=== PATIENT | female | born 1930 | race Caucasian/White ===

== ENCOUNTER 2016-12-03 11:16 | Day surgery (SDC) | payer MEDICARE, BC ==
[~2016-12-03 11:16] MED LIST: RINGER'S SOLUTION,LACTATED 1,000 ML IV PRN; ceFAZolin SODIUM 1 GM VIAL IV PRN
--- OUTSIDE RECORDS SUMMARY | 2016-12-03 11:20 | XMS REPORT | Encounter Summary ---
:1930 Author Organization [employer] [place] [address] Care Team Providers Name Role Phone Unavailable Primary Care Provider Unavailable Reason for Visit Reason Comments Elbow Injury History and PHysical for surgery clearance Encounter Details Date Type Department Care Team Description 11/30/2016 Office Visit [facility] Aleks Delgadillo V, Frequent falls (Primary Dx); Reji FRYE Contusion, multiple sites; [address] [place] [address] Right elbow pain; [place] [address] [place] [address] Essential hypertension; [phone] Hypothyroidism, unspecified type; [phone] Unsteady gait (Fax) Social History Tobacco Use Types Packs/Day Years Used Date Current Every Day Smoker 1 Smokeless Tobacco: Never Used Alcohol Use Drinks/Week oz/Week Comments No Sex Assigned at Date Recorded Not on file as of this encounter Last Filed Vital Signs Vital Sign Reading Time Taken Blood Pressure 110/60 11/30/2016 9:56 AM CDT Pulse 52 11/30/2016 9:56 AM CDT Temperature 35.5 C (95.9 F) 11/30/2016 9:56 AM CDT Respiratory Rate 16 11/30/2016 9:56 AM CDT Oxygen Saturation 96% 11/30/2016 9:56 AM CDT Inhaled Oxygen Concentration - - Weight 53.1 kg (117 lb) 11/30/2016 9:56 AM CDT Height - - Body Mass Index 22.11 11/30/2016 9:56 AM CDT in this encounter Progress Notes Aleks Delgadillo V, - 11/30/2016 10:30 AM CDTFormatting of this note may be different from the original. Subjective: Patient ID: Luz Moreno is a 86 y.o. female. Here for History and Physical for clearance for Right Elbow surgery with Dr. Chisholm in [facility]. Surgery is scheduled for 12/03 tentatively. History provided by: Caregiver History limited by: Age and acuity of condition director workforce management used: No Recent fall and contusions to upper extremities and face. Patient's problem list, medications, allergies, past medical, surgical, social and family histories were reviewed and updated as appropriate. Review of Systems Constitutional: Negative. HENT: Negative. Eyes: Negative. Respiratory: Negative. Cardiovascular: Negative. Gastrointestinal: Negative. Endocrine: Negative. Genitourinary: Negative. Musculoskeletal: Negative. Elbow pain /fracture Skin: Negative. Allergic/Immunologic: Negative. Neurological: Negative. Hematological: Negative. Psychiatric/Behavioral: Negative. Objective: BP 110/60 (BP Location: E, BP Position: sitting, BP Cuff Size: Reg) | Pulse 52 | Temp (!) 35.5 C (95.9 F) | Resp 16 | Wt 53.1 kg (117 lb) | SpO2 96 % | BMI 22.11 kg/m Body mass index is22.11 kg/m. Physical Exam Constitutional: She appears well-developed and well-nourished. HENT: Head: Normocephalic. Right Ear: External ear normal. Left Ear: External ear normal. Nose: Nose normal. Mouth/Throat: Oropharynx is clear and moist. Bruising to the right side face and head. Eyes: Conjunctivae and EOM are normal. Pupils are equal, round, and reactive to light. Neck: Normal range of motion. Neck supple. Cardiovascular: Normal rate, regular rhythm and normal heart sounds. Pulmonary/Chest: Effort normal and breath sounds normal. Abdominal: Soft. Bowel sounds are normal. Musculoskeletal: Generalized weakness. Unsteady gait. Pain in right elbow with decreased range of motion. Neurological: She is alert. Skin: Skin is warm and dry. Multiple bruises on upper and lower extremities. Psychiatric: She has a normal mood and affect. Her behavior is normal. Demented. Nursing note and vitals reviewed. Assessment/Orders: Diagnoses and all orders for this visit: Frequent falls Contusion, multiple sites Right elbow pain Plan: Medically cleared for elbow surgery. Recommend Correction and rehab post- surgery due to frequent falls and unsteady gait. in this encounter Plan of Treatment Not on fileas of this encounter Goals Patient Goal Type Goal Recent Progress Patient-Stated? Author Blood Pressure Blood Pressure < 110/60(11/30/2016 Aleks Eckert 140/90 9:56 AM CDT) V, DO as of this encounter Visit Diagnoses Diagnosis Frequent falls - Primary Personal history of fall Contusion, multiple sites Contusion of multiple sites, not elsewhere classified Right elbow pain Pain in joint, upper arm Essential hypertension Unspecified essential hypertension Hypothyroidism, unspecified type Unsteady gait Abnormality of gait in this encounter"
--- OUTSIDE RECORDS SUMMARY | 2016-12-03 11:20 | XMS REPORT | Clinical Summary ---
:1930 Author Organization [email or web address] [place] [address] Care Team Providers Name Role Phone Unavailable Primary Care Provider Unavailable Source Comments This disclosure is being made pursuant to the [employer] program and maynot contain all information available regarding this patient.[email or web address] Allergies No Known Allergies Current Medications Be aware that medications may not be up to date as of this document. Alwaysverify current medications with the patient. Prescription Sig. Disp. Refills Start Date End Date Status atenolol (TENORMIN) Take 1 tablet 30 tablet 11 08/13/2016 Active 50 MG tablet by mouth daily. benazepril TAKE ONE 30 tablet 4 09/16/2016 Active (LOTENSIN) 40 MG TABLET BY tablet MOUTH ONCE DAILY folic acid (FOLVITE) TAKE ONE 30 tablet 0 10/22/2016 Active 1 MG tablet TABLET BY MOUTH ONCE DAILY levothyroxine Take 1 tablet 10/22/2016 Active (SYNTHROID, oral daily. LEVOTHROID) 88 MCG tablet HYDROcodone-acetamin Take 1 tablet 45 tablet 0 11/11/2016 Active ophen (NORCO) 5-325 by mouth MG per tablet every 6 (six) hours as needed for Pain. Take oral as needed. HYDROcodone-acetamin Take oral as 11/03/2016 11/11/2016 Discontinued ophen (NORCO) 5-325 needed. MG per tablet sulfamethoxazole-tri Take 1 tablet 20 tablet 0 11/04/2016 11/14/2016 methoprim (BACTRIM by mouth 2 DS,SEPTRA DS) (two) times 800-160 MG per daily. tabletIndications:Ac lower brule cystitis without hematuria Active Problems Problem Noted Date Closed displaced fracture of olecranon process of right ulna with 11/04/2016 intra-articular extension Encounters Date Type Specialty Care Team Description 11/30/2016 Office Visit Family Medicine Manarang, Don V, DO Frequent falls (Primary Dx); Contusion, multiple sites; Right elbow pain; Essential hypertension; Hypothyroidism, unspecified type; Unsteady gait 11/26/2016 Telephone Family Medicine Monserrat Pugh, Ortho appt RN 11/25/2016 Telephone Family Medicine Monserrat Pugh, Follow-up (appt with early childhood specialist) 11/24/2016 Orders Only Kaci Subramanian Head injury, closed, without LOC, subsequent encounter 11/24/2016 Telephone Orthopedic Surgery Kymberly Gifford Procedure J, RN 11/24/2016 Telephone Family Monserrat Oakes, neuro call back RN 11/24/2016 Telephone Family Monserrat Oakes, Neuro eval and surgery RN 11/17/2016 Orders Only Family Medicine Aleks Delgadillo V, Frequent falls 11/15/2016 Telephone Orthopedic Surgery Kymberly Gifford Follow-up J, RN 11/11/2016 Telephone Family Monserrat Oakes, Results RN 11/11/2016 Telephone Orthopedic Surgery Kymberly Gifford Follow-up J, RN 11/11/2016 Refill Family Medicine Monserrat Pugh, RN 11/04/2016 Office Visit Family Medicine Aleks Delgadillo V, Frequent falls (Primary Dx); Head injury, closed, without LOC, subsequent encounter; Right elbow pain; Acute cystitis without hematuria 11/04/2016 Office Visit Orthopedic Surgery Lauren, Closed displaced MD João fracture of olecranon process of right ulna with intra-articular extension, initial encounter (Primary Dx) 10/22/2016 Refill Family Medicine Aleks Delgadillo V, DO 09/15/2016 Refill Family Medicine Aleks Delgadillo V, DO from Last 3 Months Family History Medical History Relation Name Comments Cancer Other Relation Name Status Comments Other Social History Tobacco Use Types Packs/Day Years Used Date Current Every Day Smoker 1 Smokeless Tobacco: Never Used Alcohol Use Drinks/Week oz/Week Comments No Sex Assigned at Date Recorded Not on file Last Filed Vital Signs Vital Sign Reading Time Taken Blood Pressure 110/60 11/30/2016 9:56 AM CDT Pulse 52 11/30/2016 9:56 AM CDT Temperature 35.5 C (95.9 F) 11/30/2016 9:56 AM CDT Respiratory Rate 16 11/30/2016 9:56 AM CDT Oxygen Saturation 96% 11/30/2016 9:56 AM CDT Inhaled Oxygen Concentration - - Weight 53.1 kg (117 lb) 11/30/2016 9:56 AM CDT Height 154.9 cm (5' 1") 11/04/2016 9:47 AM CDT Body Mass Index 22.11 11/30/2016 9:56 AM CDT Plan of Treatment Health Maintenance Due Date Last Done Comments Tetanus/Pertussis (1 - Tdap) 09/20/1949 Well Adult Visit 1982 Zoster Vaccine 60+ 1992 Bone Density 1997 Pneumococcal Low/Medium Risk 65+ (1 of 2 - PCV13) 1997 INFLUENZA IMMUNIZATION (#1) 2016 Goals Patient Goal Type Goal Recent Progress Patient-Stated? Author Blood Pressure Blood Pressure < 110/60(11/30/2016 Aleks Eckert 140/90 9:56 AM CDT) V, DO Results MRI BRAIN W WO CONTRAST (11/08/2016 3:36 PM) Specimen Performing Laboratory EXTERNAL NON UPH RAD - NO INTERFACE Creatinine, Blood (11/08/2016) Specimen Performing Laboratory EXTERNAL NON UPH - NO INTERFACE POCT UA (11/04/2016) Component Value Ref Range Color, UA orange(A) colorless, yellow Clarity or appearance, UA cloudy(A) clear Glucose, UA negative negative mg/dL Bilirubin, UA small (1+)(A) negative, trace Ketones, UA negative negative, trace Specific [place],UA POC 1.025 1.003 - 1.029 Blood, UA moderate (2+)(A) negative pH, UA POC 7.5 5.0 - 8.5 Protein, UA POC 300 (3+)(A) negative Urobilinogen, UA POC 1.0 0.20 - 1.00 mg/dL Nitrite POC Negative Negative, Indeterminate Leukocytes, UA large (3+)(A) negative, trace Color, UA Clarity, UA Glucose, UA NEG Bilirubin, UA NEG Ketones, UA Specific [place] POC Blood, UR pH Protein POC NEG Urobilinogen, UA Leukocytes, UA Nitrite POC NEG Appearance, Fluid Clear, Slightly Cloudy Specimen Performing Laboratory [address], [address] [place] [address] from Last 3 Months Insurance Payer Benefit Plan / Group Subscriber ID Type Phone Address [employer] [place] [id number] [id number] MEDICARE SUPPLEMENT [address] [place] [address] MEDICARE MEDICARE A AND B [id number] [address] [place] [address] [phone] [place] [id number]
--- OUTSIDE RECORDS SUMMARY | 2016-12-03 11:21 | XMS REPORT | Encounter Summary ---
:1930 Author Organization [employer] [place] [address] Care Team Providers Name Role Phone Unavailable Primary Care Provider Unavailable Reason for Referral Referral (Routine) Status Reason Specialty Diagnoses / Referred By Referred To Procedures Contact Contact Authorized Specialty Orthopedic Diagnoses Elbow fracture, right, with delayed healing, subsequent encounter Aleks Delgadillo Services Surgery V, DO Required [address] [place] [address] Reason for Visit Reason Comments Ortho appt Encounter Details Date Type Department Care Team Description 11/26/2016 Telephone [facility] Monserrat Fields, weight analyst appt [address] [place], [place] [id number] [phone] Social History Tobacco Use Types Packs/Day Years Used Date Current Every Day Smoker 1 Alcohol Use Drinks/Week oz/Week Comments No Sex Assigned at Date Recorded Not on file as of this encounter Plan of Treatment Name Priority Associated Diagnoses Order Schedule Amb Ref to Orthopedic Routine Elbow fracture, right, with Ordered: 2016 Surgery delayed healing, subsequent encounter as of this encounter Visit Diagnoses Diagnosis Elbow fracture, right, with delayed healing, subsequent encounter - Primary in this encounter
--- OUTSIDE RECORDS SUMMARY | 2016-12-03 11:21 | XMS REPORT | Encounter Summary ---
:1932 Author Organization [employer] [place] [address] Care Team Providers Name Role Phone Unavailable Primary Care Provider Unavailable Reason for Visit Reason Comments neuro call back Encounter Details Date Type Department Care Team Description 11/24/2016 Telephone [facility] Monserrat Pugh, MACI neuro call back [address] [address] [phone] Social History Tobacco Use Types Packs/Day Years Used Date Current Every Day Smoker 1 Alcohol Use Drinks/Week oz/Week Comments No Sex Assigned at Date Recorded Not on file as of this encounter Plan of Treatment Not on fileas of this encounter Visit Diagnoses Not on filein this encounter
--- OUTSIDE RECORDS SUMMARY | 2016-12-03 11:21 | XMS REPORT | Encounter Summary ---
:1932 Author Organization [employer] [place] [address] Care Team Providers Name Role Phone Unavailable Primary Care Provider Unavailable Reason for Referral MRI/CAT Scan (Routine) Status Reason Specialty Diagnoses / Referred By Referred To Procedures Contact Contact Authorized Other Diagnoses Head injury, closed, without LOC, subsequent encounter Aleks Delgadillo V, Procedures MRI BRAIN W WO CONTRAST DO [address] [place] [address] Encounter Details Date Type Department Care Team Description 11/24/2016 Orders Only [facility] Kaci Subramanian Head injury, closed, Centralized Scanning [address] without LOC, [place], [place] subsequent encounter [id number] Social History Tobacco Use Types Packs/Day Years Used Date Current Every Day Smoker 1 Alcohol Use Drinks/Week oz/Week Comments No Sex Assigned at Date Recorded Not on file as of this encounter Plan of Treatment Not on fileas of this encounter Goals Patient Goal Type Goal Recent Progress Patient-Stated? Author Blood Pressure Blood Pressure < 110/60(11/30/2016 No Aleks Delgadillo 140/90 9:56 AM CDT) V, DO as of this encounter Results MRI BRAIN W WO CONTRAST (11/08/2016 3:36 PM) Specimen Performing Laboratory EXTERNAL NON UPH RAD - NO INTERFACE in this encounter Visit Diagnoses Diagnosis Head injury, closed, without LOC, subsequent encounter in this encounter
--- OUTSIDE RECORDS SUMMARY | 2016-12-03 11:21 | XMS REPORT | Encounter Summary ---
:1932 Author Organization [employer] [place] [address] Care Team Providers Name Role Phone Unavailable Primary Care Provider Unavailable Reason for Visit Reason Comments Procedure Encounter Details Date Type Department Care Team Description 11/24/2016 Telephone [facility] Kymberly Ojeda RN Procedure Orthopedics [address] [place] [address], [address] [address] [place], [place] [id number] Social History Tobacco Use Types Packs/Day Years Used Date Current Every Day Smoker 1 Alcohol Use Drinks/Week oz/Week Comments No Sex Assigned at Date Recorded Not on file as of this encounter Plan of Treatment Not on fileas of this encounter Visit Diagnoses Not on filein this encounter
--- OUTSIDE RECORDS SUMMARY | 2016-12-03 11:21 | XMS REPORT | Encounter Summary ---
:1932 Author Organization [employer] [place] [address] Care Team Providers Name Role Phone Unavailable Primary Care Provider Unavailable Reason for Visit Reason Comments Follow-up appt with Ortho Encounter Details Date Type Department Care Team Description 11/25/2016 Telephone [facility] Monserrat Pugh, Follow-up ( appt with Reji Wallace) [address] [place] [phone] [place] [phone] Social History Tobacco Use Types Packs/Day Years Used Date Current Every Day Smoker 1 Alcohol Use Drinks/Week oz/Week Comments No Sex Assigned at Date Recorded Not on file as of this encounter Plan of Treatment Not on fileas of this encounter Visit Diagnoses Not on filein this encounter
--- OUTSIDE RECORDS SUMMARY | 2016-12-03 11:21 | XMS REPORT | Encounter Summary ---
:1932 Author Organization [employer] [place] [address] Care Team Providers Name Role Phone Unavailable Primary Care Provider Unavailable Reason for Visit Reason Comments Neuro eval and surgery Encounter Details Date Type Department Care Team Description 11/24/2016 Telephone [facility] Monserrat Pugh, Neuro eval and surgery Reji RN [address] [place] [phone] [place] [address] [phone] Social History Tobacco Use Types Packs/Day Years Used Date Current Every Day Smoker 1 Alcohol Use Drinks/Week oz/Week Comments No Sex Assigned at Date Recorded Not on file as of this encounter Plan of Treatment Not on fileas of this encounter Visit Diagnoses Not on filein this encounter
--- OUTSIDE RECORDS SUMMARY | 2016-12-03 11:22 | XMS REPORT | Encounter Summary ---
:1932 Author Organization [employer] [place] [address] Care Team Providers Name Role Phone Unavailable Primary Care Provider Unavailable Reason for Visit Reason Comments Follow-up Encounter Details Date Type Department Care Team Description 11/15/2016 Telephone [facility] Kymberly Ojeda RN Follow-up Orthopedics [address] [place] [address], [address] [address] [place], [place] [phone] Social History Tobacco Use Types Packs/Day Years Used Date Current Every Day Smoker 1 Alcohol Use Drinks/Week oz/Week Comments No Sex Assigned at Date Recorded Not on file as of this encounter Plan of Treatment Not on fileas of this encounter Visit Diagnoses Not on filein this encounter
--- OUTSIDE RECORDS SUMMARY | 2016-12-03 11:22 | XMS REPORT | Encounter Summary ---
:1932 Author Organization [employer] [place] [address] Care Team Providers Name Role Phone Unavailable Primary Care Provider Unavailable Reason for Referral Referral (Routine) Status Reason Specialty Diagnoses / Referred By Referred To Procedures Contact Contact Authorized Patient Neurology Diagnoses Headaches due to old head injury Aleks Delgadillo [place] Preference V, [facility], [address] [place] [address] [address] [address], [facility] Phone: [place], [place] [phone] [address] Fax: Reason for Visit Reason Comments Results Encounter Details Date Type Department Care Team Description 11/11/2016 Telephone [facility] Monserrat Fields, MACI Results [address] [place], [place] [id number] [place] [address] [phone] Social History Tobacco Use Types Packs/Day Years Used Date Current Every Day Smoker 1 Alcohol Use Drinks/Week oz/Week Comments No Sex Assigned at Date Recorded Not on file as of this encounter Plan of Treatment Name Priority Associated Diagnoses Order Schedule Amb Ref to Neurology Routine Headaches due to old head injury Ordered: 11/11 as of this encounter Visit Diagnoses Diagnosis Headaches due to old head injury - Primary Post-traumatic headache, unspecified in this encounter
--- OUTSIDE RECORDS SUMMARY | 2016-12-03 11:23 | XMS REPORT | Encounter Summary ---
:1932 Author Organization [employer] Address [place] [address] Care Team Providers Name Role Phone Unavailable Primary Care Provider Unavailable Reason for Visit Reason Comments Elbow Pain RIGHT Encounter Details Date Type Department Care Team Description 11/04/2016 Office Visit [facility] Lauren, Bettina displaced [place] [facility] MD João fracture of olecranon [address] [facility], [address] [place] [address] process of right ulna [address] [place] [address] [place], [place] extension, initial [phone] encounter (Primary Dx) [phone] Social History Tobacco Use Types Packs/Day Years Used Date Current Every Day Smoker 1 Alcohol Use Drinks/Week oz/Week Comments No Sex Assigned at Date Recorded Not on file as of this encounter Last Filed Vital Signs Vital Sign Reading Time Taken Blood Pressure 135/70 11/04/2016 9:47 AM CDT Pulse - - Temperature 35.8 C (96.5 F) 11/04/2016 9:47 AM CDT Respiratory Rate - - Oxygen Saturation - - Inhaled Oxygen Concentration - - Weight 53.1 kg (117 lb) 11/04/2016 9:47 AM CDT Height 154.9 cm (5' 1") 11/04/2016 9:47 AM CDT Body Mass Index 22.11 11/04/2016 9:47 AM CDT in this encounter Progress Notes João Aguilar MD - 11/04/2016 9:32 AM CDTFormatting of this note may be different from the original. Subjective: Patient ID: Luz Moreno is a 86 y.o. female. Chief Complaint: HPI Comments: Ms. Moreno presents to the clinic today due to RIGHT elbow pain. She presented to the [facility] ER on 11/03/16 after falling yesterday morning. She presents today with her daughter. Both women stated that x-rays were obtained at the ER, she was placed in a splint, and was given a prescription of Vicodin. Her daughter states that the ER staff told her that her mother had "two fractures in her elbow." She presents today wearing a sling and in a wheelchair. She reports that her elbow is more sore today than it was yesterday. Her daughter reports that Ms. Moreno has had some trouble sleeping due to the pain. She rates her current pain level as 7/10, with 10 being the most severe. She reports that her prescribed Vicodin helps torelieve some pain. Social History Occupational History Not on file. Social History Main Topics Smoking status: Current Every Day Smoker -- 1.00 packs/day Smokeless tobacco: Not on file Alcohol Use: No Drug Use: No Sexual Activity: Not on file Review of Systems Constitutional: Negative. HENT: Negative. Eyes: Negative. Respiratory: Negative. Cardiovascular: Negative. Gastrointestinal: Negative. Endocrine: Negative. Genitourinary: Negative. Musculoskeletal: RIGHT elbow pain Skin: Negative. Allergic/Immunologic: Negative. Neurological: Negative. Hematological: Negative. Psychiatric/Behavioral: Negative. Objective: Ortho Exam DNVI SHOULDEER WRIST BENING XRS; DISPLACED RIGHT OLECRANON INTRA ART FRACTURE Assessment: 1. Closed displaced fracture of olecranon process of right ulna with intra- articular extension, initial encounter Plan: NEEDS SURGERY NEEDS FU MRI FOR CLOSED HEAD INJURY 1ST/DR Brenner in this encounter Plan of Treatment Not on fileas of this encounter Visit Diagnoses Diagnosis Closed displaced fracture of olecranon process of right ulna with intra- articular extension, initial encounter - Primary in this encounter
--- OUTSIDE RECORDS SUMMARY | 2016-12-03 11:23 | XMS REPORT | Encounter Summary ---
:1930 Author Organization [employer] [place] [address] Care Team Providers Name Role Phone Unavailable Primary Care Provider Unavailable Reason for Referral MRI/CAT Scan (Routine) Status Reason Specialty Diagnoses / Referred By Referred To Procedures Contact Contact Authorized Other Diagnoses Head injury, closed, without LOC, subsequent encounter Aleks Delgadillo V, Procedures MRI BRAIN W WO CONTRAST DO [address] [place] [id number] Reason for Visit Reason Comments Follow-up fall Encounter Details Date Type Department Care Team Description 11/04/2016 Office Visit [facility] Aleks Delgadillo V, Frequent falls (Primary Dx); [facility] Head injury, closed, without LOC, subsequent encounter; [address] [place] [address] Right elbow pain; [place] [address] [place] [address] Acute cystitis without hematuria [phone] Social History Tobacco Use Types Packs/Day Years Used Date Current Every Day Smoker 1 Alcohol Use Drinks/Week oz/Week Comments No Sex Assigned at Date Recorded Not on file as of this encounter Last Filed Vital Signs Vital Sign Reading Time Taken Blood Pressure 128/72 11/04/2016 1:22 PM CDT Pulse 58 11/04/2016 1:22 PM CDT Temperature - - Respiratory Rate 16 11/04/2016 1:22 PM CDT Oxygen Saturation 99% 11/04/2016 1:22 PM CDT Inhaled Oxygen Concentration - - Weight - - Height - - Body Mass Index - - in this encounter Instructions Patient Instructions - Aleks Delgadillo V, DO - 11/04/2016 1:35 PM CDT Urinary Tract Infection in Women: Care Instructions Your Care Instructions A urinary tract infection, or UTI, is a general term for an infection anywhere between the kidneys and the urethra (where urine comes out). Most UTIs are bladder infections. They often cause pain or burning when you urinate. UTIs are caused by bacteria and can be cured with antibiotics. Be sure to complete your treatment so that the infection goes away. Follow-up care is a [place] part of your treatment and safety. Be sure to make and go to all appointments, and call your doctor if you are having problems. It's also a good idea to know your test resultsand keep a list of the medicines you take. How can you care for yourself at home? Take your antibiotics as directed. Do not stop taking them just because you feel better. You need to take the full course of antibiotics. Drink extra water and other fluids for the next day or two. This may help wash out the bacteria that are causing the infection. (If you have kidney, heart , or liver disease and have to limit fluids, talk with your doctor before you increase your fluid intake.) Avoid drinks that are carbonated or have caffeine. They can irritate the bladder. Urinate often. Try to empty your bladder each time. To relieve pain, take a hot bath or lay a heating pad set on low over your lower belly or genital area. Never go to sleep with a heating pad in place. To prevent UTIs Drink plenty of water each day. This helps you urinate often, which clears bacteria from your system. (If you have kidney, heart, or liver disease and have to limit fluids, talk with your doctor before you increase your fluid intake.) Urinate when you need to. Urinate right after you have sex. Change sanitary pads often. Avoid douches, bubble baths, feminine hygiene sprays, and other feminine hygiene products that have deodorants. After going to the bathroom, wipe from front to back. When should you call for help? Call your doctor now or seek immediate medical care if: Symptoms such as fever, chills, nausea, or vomiting get worse or appear for the first time. You have new pain in your back just below your rib cage. This is called flank pain. There is new blood or pus in your urine. You have any problems with your antibiotic medicine. Watch closely for changes in your health, and be sure to contact your doctor if: You are not getting better after taking an antibiotic for 2 days. Your symptoms go away but then come back. Where can you learn more? Go to the "Search Health Library" box on [employer] [email or web address] by clicking on the magnifying glass tab. Enter K848 in the search box to learn more about "Urinary Tract Infection in Women: Care Instructions." Not on [employer]? Go to [email or web address] and click the "Sign Up Now" link to request an activation code. Current as of: March 29, 2016 Content Version: 11.3 8608-1612 [employer]. Care instructions adapted under license by your healthcare professional. This care instruction is for use with your licensed healthcare professional. If you havequestions about a medical condition or this instruction, always ask your healthcare professional. [employer] disclaims any warranty or liability for your use of this information. in this encounter Progress Notes Aleks Delgadillo V, - 11/04/2016 1:22 PM CDTFormatting of this note may be different from the original. Subjective: Patient ID: Luz Moreno is a 86 y.o. female. HPI Here for follow up on ER after fall yesterday morning. She hurt her elbow and hit her head. Complains of headache. Daughter states had some questionable CT head result. Patient's problem list, medications, allergies, past medical, surgical, social and family histories were reviewed and updated as appropriate. Review of Systems Constitutional: Negative. HENT: Negative. Eyes: Negative. Respiratory: Negative. Cardiovascular: Negative. Gastrointestinal: Negative. Endocrine: Negative. Genitourinary: Negative. Musculoskeletal: RT elbow swelling after fall. Allergic/Immunologic: Negative. Neurological: Negative. Hematological: Negative. Psychiatric/Behavioral: Negative. Objective: BP 128/72 mmHg | Pulse 58 | Resp 16 | SpO2 99% There is no weight on file to calculate BMI. Physical Exam Constitutional: She is oriented to person, place, and time. She appears well- developed and well-nourished. HENT: Head: Normocephalic. Right Ear: External ear normal. Left Ear: External ear normal. Nose: Nose normal. Mouth/Throat: Oropharynx is clear and moist. Eyes: Conjunctivae and EOM are normal. Pupils are equal, round, and reactive to light. Neck: Normal range of motion. Neck supple. Cardiovascular: Normal rate, regular rhythm and normal heart sounds. Pulmonary/Chest: Effort normal and breath sounds normal. Abdominal: Soft. Musculoskeletal: Unsteady gait patient seen in wheelchair today. Right elbow in cast/splint. Neurological: She is alert and oriented to person, place, and time. Persistent headache. Skin: Skin is warm and dry. Psychiatric: She has a normal mood and affect. Her behavior is normal. Nursing note and vitals reviewed. Assessment/Orders: Diagnoses and all orders for this visit: Frequent falls - POCT UA - Creatinine, Blood; Future Head injury, closed, without LOC, subsequent encounter - MRI BRAIN W WO CONTRAST; Future Right elbow pain Acute cystitis without hematuria - sulfamethoxazole-trimethoprim (BACTRIM DS,SEPTRA DS) 800-160 MG per tablet ; Take 1 tablet by mouth 2 (two) times daily. Plan: Need MRI brain with history of falls, headaches, and possible normal pressure hydrocephalus on CT in this encounter Plan of Treatment Not on fileas of this encounter Results MRI BRAIN W [...] trace Ketones, UA negative negative, trace Specific [place],UA POC 1.025 1.003 - 1.029 Blood, UA moderate (2+)(A) negative pH, UA POC 7.5 5.0 - 8.5 Protein, UA POC 300 (3+)(A) negative Urobilinogen, UA POC 1.0 0.20 - 1.00 mg/dL Nitrite POC Negative Negative, Indeterminate Leukocytes, UA large (3+)(A) negative, trace Color, UA Clarity, UA Glucose, UA NEG Bilirubin, UA NEG Ketones, UA Specific [place] POC Blood, UR pH Protein POC NEG Urobilinogen, UA Leukocytes, UA Nitrite POC NEG Appearance, Fluid Clear, Slightly Cloudy Specimen Performing Laboratory [address], [address] [place] [address] in this encounter Visit Diagnoses Diagnosis Frequent falls - Primary Personal history of fall Head injury, closed, without LOC, subsequent encounter Right elbow pain Pain in joint, upper arm Acute cystitis without hematuria Acute cystitis in this encounter
--- OUTSIDE RECORDS SUMMARY | 2016-12-03 11:23 | XMS REPORT | Encounter Summary ---
:1930 Author Organization [facility] Address [place] [address] Care Team Providers Name Role Phone Unavailable Primary Care Provider Unavailable Reason for Visit Reason Comments Medication Refill Encounter Details Date Type Department Care Team Description 11/11/2016 Refill [facility] Monserrat Fields, RN [address] [place] [phone] [place] [address] [phone] Social History Tobacco Use Types Packs/Day Years Used Date Current Every Day Smoker 1 Alcohol Use Drinks/Week oz/Week Comments No Sex Assigned at Date Recorded Not on file as of this encounter Plan of Treatment Not on fileas of this encounter Visit Diagnoses Not on filein this encounter
--- OUTSIDE RECORDS SUMMARY | 2016-12-03 11:23 | XMS REPORT | Encounter Summary ---
:1930 Author Organization [facility] [place] [address] Care Team Providers Name Role Phone Unavailable Primary Care Provider Unavailable Reason for Visit Reason Comments Follow-up Encounter Details Date Type Department Care Team Description 11/11/2016 Telephone [facility] Kymberly Ojeda RN Follow-up Orthopedics [address] [place] [address], [address] [id number] [place], [place] [id number] Social History Tobacco Use Types Packs/Day Years Used Date Current Every Day Smoker 1 Alcohol Use Drinks/Week oz/Week Comments No Sex Assigned at Date Recorded Not on file as of this encounter Plan of Treatment Not on fileas of this encounter Visit Diagnoses Not on filein this encounter
--- OUTSIDE RECORDS SUMMARY | 2016-12-03 11:23 | XMS REPORT | Encounter Summary ---
:1930 Author Organization [employer] [place] [address] Care Team Providers Name Role Phone Unavailable Primary Care Provider Unavailable Reason for Visit Reason Comments Medication Refill Encounter Details Date Type Department Care Team Description 09/15/2016 Refill [facility] Aleks Delgadillo V, [address] [place] [phone] [place] [id number] Social History Tobacco Use Types Packs/Day Years Used Date Never Assessed Sex Assigned at Date Recorded Not on file as of this encounter Plan of Treatment Not on fileas of this encounter Visit Diagnoses Not on filein this encounter
--- OUTSIDE RECORDS SUMMARY | 2016-12-03 11:24 | XMS REPORT | Encounter Summary ---
:1930 Author Organization [employer] [place] [address] Care Team Providers Name Role Phone Unavailable Primary Care Provider Unavailable Reason for Visit Reason Comments Medication Refill Encounter Details Date Type Department Care Team Description 08/13/2016 Refill [facility] Monserrat Fields, RN [facility] [id number] [place] [id number] Social History Tobacco Use Types Packs/Day Years Used Date Never Assessed Sex Assigned at Date Recorded Not on file as of this encounter Plan of Treatment Not on fileas of this encounter Visit Diagnoses Not on filein this encounter
[2016-12-03] MEDS ORDERED: RINGER'S SOLUTION,LACTATED 1,000 ML IV ONE (13:05)
--- NOTE | 2016-12-03 15:37 | OR ---
Anesthesia Procedure Note - Anesthesia Procedure Note Date of Service: 12/03/16 Narrative: Vital Signs - Last Taken Temp 36.6 C 12/03/16 15:30 Pulse 90 12/03/16 15:30 Resp 16 12/03/16 15:30 BP 140/59 12/03/16 15:30 Pulse Ox 98 12/03/16 15:30 O2 Oxygen Delivery Method Nasal Cannula 12/03/16 15:35 ANESTHESIA PROCEDURE NOTE Date of Procedure: 12/03/2016 Time of procedure: 1310. Performed by: CARYN Titus CRNA, MSN Shelter Supervisor: Aye Chung RN. Preprocedure diagnosis: Pitting relief for post ORIF elbow. Post procedure diagnosis: Same. Procedure: Right Interscalene nerve block. Indications: Post elbow surgery pain relief. Findings: See below. Details of the procedure: The patient was brought to OR #2 and placed in semi- Fowlers position. The patient was prepped with chlorhexidine and using ultrasound guidance the right interscalene segment of the brachial plexus was identified and lidocaine 1% was infiltrated to the skin of the intended injection site. Under ultrasound guidance the interscalene nerve bundles were approached until a shoulder/arm response was identified on nerve stimulator. Once the stimulator response was effective at less than 0.5 mV and greater than 0.3 mV the femoral nerve was surrounded with 30 mL bupivacaine 0.5% with 1-200, 000 epinephrine. Please see radiology/ultrasound report for details and images of the procedure. EBL: 0 Fluids: N/A. Specimen: N/A. Post procedure condition: The patient tolerated the procedure well. No complications were noted. Thank you for this consultation. Adal Hassan CRNA, ARNP, MSN
[2016-12-03 17:14] VITALS: BP 104/56
== END 2016-12-03 11:17 | disposition home or self-care (01) ==
LOC: AMB 11:16
PROVIDERS: ATTEND Orthopaedic Surgery
PROC: 3E0T3BZ Introduction of Anesthetic Agent into Peripheral Nerves and Plexi, Percutaneous Approach (ICD-10-PCS; 2016-12-03)
PROC: 0PSK04Z Reposition Right Ulna with Internal Fixation Device, Open Approach (ICD-10-PCS; principal; 2016-12-03 14:15)
DX: S52.021A Displaced fracture of olecranon process without intraarticular extension of right ulna, initial encounter for closed fracture (principal); I10 Essential (primary) hypertension; E03.9 Hypothyroidism, unspecified; R26.81 Unsteadiness on feet; Z68.22 Body mass index [BMI] 22.0-22.9, adult; W19.XXXA Unspecified fall, initial encounter; Z91.81 History of falling

== ENCOUNTER 2017-01-21 10:34 | Day surgery (SDC) | payer MEDICARE, BC ==
[~2017-01-21 10:34] MED LIST changes: +HYDROmorphone HCL 2 MG/ML VIAL IV PRN
[2017-01-21] MEDS ORDERED: BUPIVACAINE HCL 50 ML VIAL IJ ONE ×2 (14:50)
[2017-01-21] MEDS ORDERED: RINGER'S SOLUTION,LACTATED 1,000 ML IV ONE (15:20)
[2017-01-21] MEDS ORDERED: HYDROcodone/ACETAMINOPHEN 1 EACH TABLET PO PRN (16:45)
[2017-01-21 17:34] VITALS: BP 118/55
== END 2017-01-21 10:35 | disposition home or self-care (01) ==
LOC: AMB 10:34
PROVIDERS: ATTEND Orthopaedic Surgery
PROC: 0JQG3ZZ Repair Right Lower Arm Subcutaneous Tissue and Fascia, Percutaneous Approach (ICD-10-PCS; 2017-01-21)
PROC: 0PPK04Z Removal of Internal Fixation Device from Right Ulna, Open Approach (ICD-10-PCS; principal; 2017-01-21 15:00)
DX: T81.32XA Disruption of internal operation (surgical) wound, not elsewhere classified, initial encounter (principal); I10 Essential (primary) hypertension; E03.9 Hypothyroidism, unspecified; F17.200 Nicotine dependence, unspecified, uncomplicated; Z68.22 Body mass index [BMI] 22.0-22.9, adult

== ENCOUNTER 2017-02-09 13:47 | Inpatient (IN) | payer MEDICARE, BC ==
[2017-02-09] MEDS ORDERED: NORMAL SALINE 1,000 ML IV ONE ×2 (14:18→14:19)
[2017-02-09] MEDS ORDERED: NOREPINEPHRINE BITARTRATE 4 MG in DEXTROSE 5 % IN WATER 496 ML IV PRN ×2 (14:24)
[2017-02-09 15:10] LABS: Magnesium 2.6 mg/dL (1.2-2.8)
[2017-02-09 15:12] LABS: ALT 12 U/L (19-67); AST 17 U/L (0-48); Albumin * 3.2 gm/dl (3.4-5.0); Alkaline Phosphatase * 80 U/L (50-170); Anion Gap 16.9 mmol/L (6.8-13.8); BUN/Creatinine Ratio 24.2 (9.0-21.6); Bilirubin, Total 0.4 mg/dL (0.0-1.1); Blood Urea Nitrogen 45 mg/dL (3-23); Ca. Corrected For Albumin 8.5 mg/dL (8.4-10.2); Calcium * 8.2 mg/dL (7.9-10.9); Carbon Dioxide 18.9 mmol/L (24-32.6); Chloride 105 mmol/L (97-106); Glucose * 104 mg/dL (70-110); Lipase 124 U/L (73-393); Potassium 5.8 mmol/L (3.4-4.6); Sodium 135 mmol/L (132-142); Total Protein 6.6 gm/dL (6.2-8.2); Troponin I Less than 0.017 ng/ml (0.00-0.10)
--- NOTE | 2017-02-09 15:33 | ERNOTE ---
Neuro HPI ER Record Date of Service: 02/09/17 Presenting Symptoms: other - patient was in the wound clinic and became unresponsive in a one point was found to have a heart rate of 40 and a blood pressure of 44/15 a CODE BLUE was called immediately Time Seen by Provider: 02/09/17 14:16 Source: family Exam Limitations: dementia Allergies/Adverse Reactions: Allergies Allergy/AdvReac Type Severity Reaction Status Date / Time No Known Allergies Allergy Unverified 12/03/16 11:38 Home Medications: HOME MEDICATIONS Aspirin [Aspirin Enteric Coated] 81 mg PO DAILY 01/20/17 [Last Taken 01/20/17] Benazepril HCl [Lotensin] 40 mg PO DAILY 01/20/17 [Last Taken 01/21/17] Folic Acid 1 mg PO DAILY 01/20/17 [Last Taken 01/20/17] HYDROcodone/ACETAMINOPHEN [Lindon 5-325] 1 tab PO Q8H PRN 01/20/17 [Last Taken ] HYDROcodone/ACETAMINOPHEN [Lindon 5-325 Tablet] 1 each PO Q12H PRN #60 tablet [Last Taken Unknown] - History of Present Illness Narrative: As was noted patient is in the wound clinic and became unresponsive, one point she had blood pressure 44/15 and heart rate of 40. As a patient did not appear to be breathing respirations were provided for her and she started to become responsive. Initially we were unclear CODE STATUS so everything was undertaken as he waited for the daughter to arrive as the power of research attorney. Onset: sudden onset Severity: severe - Character of Deficits Baseline Cognition: Present: alert but confused Baseline Gait: Present: walks only w/ assistance Associated Symptoms: Reports: none Prior Treament: Reports: recently seen - at the wound clinic Review of Systems - Narrative Narrative: Unable to obtain due to both the initial obtunded status and the underlying dementia after we resuscitated her. - Review of Systems Constitutional: Present: See HPI EYE: Present: no symptoms reported ENT: Present: no symptoms reported Respiratory: Present: no symptoms reported Cardiology: Present: no symptoms reported Gastrointestinal/Abdominal: Present: no symptoms reported Genitourinary: Present: no symptoms reported Musculoskeletal: Present: no symptoms reported Skin: Present: no symptoms reported Neurological: Present: no symptoms reported Endocrine: Present: no symptoms reported Hematologic/Lymphatic: Present: no symptoms reported Psych: Present: no symptoms reported - Patient's Past Medical History Patient History - Medical: Cataracts, Dementia, Hypothyroidism Patient History - Cardiac/Respiratory: COPD, Hypertension, TIA Patient History - Cancer: No Hx of Cancer Patient History - Surgical Procedures: Cataracts, Hysterectomy, Orthopedic Patient History - Other: None LMP (females 10-50): Menopausal - Family History Mother Family History - Medical: , No pertinent hx Family History - Cardiac/Respiratory: Hypertension, Myocardial Infarction Family History - Cancer: No pertinent family hx Father Family History - Medical: , No pertinent hx Family History - Cardiac/Respiratory: Myocardial Infarction Family History - Cancer: No pertinent family hx - Social History Living Situations: home Abuse History: No History of abuse Psych History: No pertinent hx Alcohol Use: none Drug Use: none Physical Exam - Physical Exam General Appearance: Present: wd/wn, alert, severe distress Head Exam: Present: normal inspection Eye Exam: Normal inspection: bilateral, PERRL: bilateral Ears, Nose, Throat: Present: dry mucous membranes Neck: Present: normal inspection, nontender Respiratory: Present: no respiratory distress, normal breath sounds, no accessory muscle use, chest nontender, lungs clear Cardiovascular/Chest: Present: no murmur, extra beats, other - weak and thready pulses Gastrointestinal/Abdominal: Present: normal bowel sounds, nontender, nondistended, soft, no organomegaly Rectal Exam: Present: deferred Back Exam: Present: normal inspection, normal range of motion Extremity Exam: Present: normal inspection, non-tender, normal range of motion, no edema, other - patient has a cast on her right arm and the right hand is swollen Neurological Exam: Present: alert, oriented, normal mood/affect Skin Exam: Present: warm/dry, cyanosis, other - decreased skin turgor Lymphatic Exam: Present: no adenopathy ED Progress - Results and Orders Patient's Lab Results:: I have reviewed the patient's lab results. - Vital Signs Patient's Vital Signs:: I have reviewed the patient's vital signs. Vital Signs: Vital Signs 02/09/17 02/09/17 02/09/17 13:47 14:46 14:56 Temperature 36.2 C L Pulse Rate 42 L 89 56 L Respiratory 8 L 14 16 Rate Blood Pressure 131/25 114/44 104/43 O2 Sat by Pulse 100 100 Oximetry 02/09/17 15:14 Temperature Pulse Rate 67 Respiratory 13 Rate Blood Pressure 84/53 O2 Sat by Pulse 99 Oximetry - EKG EKG: NSR, premature ventricular contraction, other - episodes of junctional rhythm - X-Ray X-Ray #1 X-Ray: chest Interpretation: Reviewed by me - Progress/Reassessment Chief Complaint: Altered Mental Status Plan - Plan Plan: Patient will need to be admitted to the intensive care unit as she is in critical condition. Patient was in the wound clinic today and went unresponsive and on my initial exam she had a heart rate of 40 and a blood pressure of 44/15. As the patient was also not breathing we initiated Ambu bag assistance and patient started breathing and became somewhat responsive. Patient had a total of 3 L of normal saline while she is in the emergency department, a dopamine drip is currently running at 10 mics per kilogram per minute, the on-call surgeon came in and placed in a triple-lumen central line for us and patient is still recovering at borderline hypotensive. As the patient has a d-dimer greater than 7 we are going to give her a dose of Lovenox tonight and we will recheck her kidney function in the morning as she is either going to need a chest CT to rule out PE or a VQ scan to rule out PE. I had a long discussion with the family the daughter who is the POA who talked to the patient as well and she has now been made a DNR. Family was relieved that we would at least attempt to treat her and try to get her back to some baseline however they're fully aware that mother is in critical condition and may very well not survive given all the underlying comorbidity. Departure Clinical Impression: Dehydration Syncope Qualifiers: Syncope type: unspecified Qualified Code(s): R55 - Syncope and collapse Hypotension Qualifiers: Hypotension type: idiopathic hypotension Qualified Code(s): I95.0 - Idiopathic hypotension - Departure Disposition: [facility] Condition: Critical - Critical Care Total Time (mins): 105 Critical Care: As mentioned in the progress notes is mentioned in the plan notes patient required numerous interventions in the form of IV fluid and IV pressors, as well as central line placement and ultrasound guided IV placement by me as well. Patient is incredibly worrisome for a PE and was given prophylactic Lovenox tonight and we will arrange for either a chest CT in the morning, if her renal function improves, or a VQ scan to rule out a possible PE.
[2017-02-09 15:34] LABS: Hemoglobin 8.9 gm/dL (12.5-16.0); Mean Cell Volume 103.2 fl (78-100); Mean Corpuscular Hemoglobin 31.7 pg (27-31); Mean Corpuscular Hgb Conc 30.7 g/dl (32-36); Mean Platelet Volume 11.4 fl (6.0-9.5); Neutrophil # 5.1 K/mm3 (1.3-6.0); Neutrophil % 79.5 % (42-75.0); Platelet Count 128 K/mm3 (150-450); Red Blood Count 2.81 M/mm3 (4.2-5.4); Red Cell Distribution Width 14.3 % (11.5-14.0); White Blood Count 6.4 K/mm3 (4.0-10.5)
[2017-02-09 16:54] LABS: Urine Bilirubin Negative (NEGATIVE); Urine Blood Negative /ul (NEGATIVE); Urine Ketone Negative (NEGATIVE); Urine Nitrite Negative (NEGATIVE); Urine Protein 15 mg/dL (NEGATIVE); Urine Urobilinogen Normal (NORMAL)
--- NOTE | 2017-02-09 17:08 | OR ---
Operative Report - Dictated Report Narrative: Date: 02/09/2017 Preop dx: hemodynamic instability Postop dx: same Procedure: left subclavian 3-lumen central venous catheter placement Staff surgeon: Oliver Arciniega MD EBL: 5cc Complications: none apparent Indications: This patient presented to the ER following a code blue situation in the wound clinic. She was found to be hypotensive and attempts at obtaining blood for laboratory are exceptionally difficult and peripheral IV access is poor, and unreliable. Anesthesia has ruled-out the placement of a PICC line. I have been asked to place a central line. Procedure: After obtaining informed consent from her POA the patient was placed in trendelenburg due to hypotension of 70/40. The chest and neck were prepped and draped in a sterile fashion. A field block was performed with 1% xylocaine plain in the left infraclavicular region. Access was gained percutaneously on the second pass with an 18 ga. thin-wall needle. A guidewire passed easily. The needle was removed and a triny was made in the skin. A dilator was placed over the guidewire and then removed. A 3-lumen catheter was advanced over the guidewire to 15 cm and the guidewire was removed. Caps were placed and each lumen withdrew and flushed easily with normal saline. The catheter was secured with 3-point fixation with silk suture then covered with op-site. The patient tolerated the procedure well without apparent complications and remains in critical but stable condition. The nurses were given a verbal OK to begin using the catheter. Subsequent CXR film is reviewed by me and shows good placement of the catheter in the distal superior vena cava and no evidence of pneumothorax. Radiologist report not available at the time of this dictation.
[2017-02-09 17:10] LABS: Urine Amorphous Sediment Few - 1+ (NONE-FEW); Urine Appearance Clear; Urine Bacteria 2+; Urine Color Yellow; Urine Fine Granular Cast 0-5 /LPF; Urine Mucus Few - 1+; Urine RBC None Seen /hpf (0-5); Urine Renal Epithelial Cell Few - 1+ /hpf; Urine Transitional Epi Cells Few - 1+ /hpf; Urine WBC 0-5 /hpf (0-5)
[2017-02-09] MEDS ORDERED: ONDANSETRON HCL/PF 2 MG/ML VIAL ONE (17:13)
[2017-02-09] MEDS ORDERED: ONDANSETRON HCL/PF 2 MG/ML VIAL IV ONE (17:14)
[2017-02-09] MEDS ORDERED: ENOXAPARIN SODIUM 30 MG/0.3 ML SYRG SC ONE (18:04)
[2017-02-09] MEDS ORDERED: ENOXAPARIN SODIUM 100 MG/ML SYRG SC ONE (18:21)
[2017-02-09] MEDS ORDERED: FLU VACC QS2017-18(6MOS UP)/PF 60 MCG/0.5 ML SYRINGE IM ONE (19:39)
--- NOTE | 2017-02-09 20:56 | HP ---
Chief Complaint - Chief Complaint Date of Service: 02/09/17 Time of Service: 20:28 Chief Complaint: hypotension, Renal failure History of Present Illness: 86years old female adm to the unit from ER with reports of unresponsiveness. PMH significant for TIA, COPD, Hypertension, dementia and right arm fracture and wound. per daughter (POA), pt was in the wound clinic today for dressing to right hand. She had sustained a fracture to right hand, resulted from a fall. pt been picking on the area to her hand that has gotten infected. During wound clinic visit, pt got flushed, vomited and was unresponsive. vitals at the time were BP 44/15, HR 40 code was called and pt taken to the ER. central line inserted for blood draws, dopamine drip initiated and IVF. D-Dimer > [address] chest to r/o PE on hold due to elevated renal failure. Lovenox 52mg x1 was given. per family pt is DNR and they considering comfort measures. per POA over the past 4 days pt have become more restless and have no appetite. Plan of care discussed with pt family they verbalized understanding and agrees. - Patient's Past Medical History Patient History - Medical: Cataracts, Dementia, Hypothyroidism, Other - Right arm fracture, right hand wound Patient History - Cardiac/Respiratory: COPD, Hypertension, TIA Patient History - Cancer: No Hx of Cancer Patient History - Surgical Procedures: Cataracts, Hysterectomy Patient History - Other: None LMP (females 10-50): Menopausal - Family History Mother Family History - Medical: , No pertinent hx Family History - Cardiac/Respiratory: Hypertension, Myocardial Infarction Family History - Cancer: No pertinent family hx Father Family History - Medical: , No pertinent hx Family History - Cardiac/Respiratory: Myocardial Infarction Family History - Cancer: No pertinent family hx - Social History Living Situations: home - with daughter Abuse History: No History of abuse Psych History: No pertinent hx Smoking Status: Current every day smoker - 1-4 cigs daily Have you smoked in the past 12 months: Yes Smoking Start Date: 02/09/1951 Patient requests Smoking Cessation Consult: No Initiate information on Smoking Cessation: No Alcohol Use: none Drug Use: none - Immunizations Immunizations Up to Date: No Hx Pneumococcal Vaccination: No Review Of Systems (GEN) - Review of Systems Generalized/Overall Review: Present: No Symptoms Reported - pt unable to provide information due to medical state, information obtained from POA, Weakness EENTM: Present: No Symptoms Reported Respiratory: Present: No Symptoms Reported Cardiac: Present: No Symptoms Reported Abdominal: Present: Nausea, Vomiting Genitourinary: Present: Incontinent Musculoskeletal: Present: No Symptoms Reported, Other - right arm facture Neurological: Present: No Symptoms Reported Skin: Present: Bruising Endocrine: Present: No Symptoms Reported Allergies/Adverse Reactions: Allergies Allergy/AdvReac Type Severity Reaction Status Date / Time No Known Allergies Allergy Unverified 12/03/16 11:38 Home Medications: HOME MEDICATIONS Aspirin [Aspirin Enteric Coated] 81 mg PO DAILY 01/20/17 [Last Taken 02/09/17 10 :00] Benazepril HCl [Lotensin] 40 mg PO DAILY 01/20/17 [Last Taken 02/09/17 10:00] Folic Acid 1 mg PO DAILY 01/20/17 [Last Taken 02/09/17 10:00] HYDROcodone/ACETAMINOPHEN [[place] 5-325] 1 tab PO Q8H PRN 01/20/17 [Last Taken 10:00] Cephalexin [Keflex] 500 mg PO TID 02/09/17 [Last Taken 02/09/17 10:00] Exam - Exam Vital Signs: Vital Signs - Last Taken Temp 36.4 C L 02/09/17 19:00 Pulse 60 02/09/17 19:00 Resp 18 02/09/17 19:00 BP 96/44 02/09/17 19:00 Pulse Ox 100 02/09/17 19:00 Constitutional: Present: No distress, Elderly, Thin and frail ENT Exam: Present: hearing grossly normal Eye Exam: bilateral eye: normal inspection Neck: Present: full range of motion Back Exam: Present: normal inspection Breasts: Present: Exam deferred Respiratory: Present: no respiratory distress, no accessory muscle use, decreased breath sounds Cardiovascular/Chest: Present: normal peripheral pulses, no chest tenderness, no edema, bradycardia Peripheral Pulses: dorsalis-pedis (R): 2+, dorsalis-pedis (L): 2+ Abdomen: Present: Normal bowel sounds, soft, nontender, nondistended, no rebound tenderness /Rectal: Present: Exam deferred Extremity: Present: non-tender, no pedal edema, no calf tenderness, normal capillary refill, other - right arm cast, fingers swollen Skin Exam: Present: warm/dry, pallor - right hand, Lymphatic: Present: no adenopathy Neurologic: Present: abnormal gait, disoriented x 3 Appearance: Present: impaired insight, impaired recent memory, impaired remote memory Eye contact: Present: normal speech, avoids eye contact, uncooperative Diagnostic Studies: Laboratory Results WBC 6.4 K/mm3 (4.0-10.5) 02/09/17 14: RBC 2.81 M/mm3 (4.2-5.4) L 02/09/17 14:17 Hgb 8.9 gm/dL (12.5-16.0) L 02/09/17 14: Hct 29.0 % (37.0-47.0) L 02/09/17 14: MCV 103.2 fl (78-100) H 02/09/17 14:17 MCH 31.7 pg (27-31) H 02/09/17 14: MCHC 30.7 g/dl (32-36) L 02/09/17 14:17 RDW 14.3 % (11.5-14.0) H 02/09/17 14:17 Plt Count 128 K/mm3 (150-450) L 02/09/17 14: MPV 11.4 fl (6.0-9.5) H 02/09/17 14:17 Immature Gran % (Auto) 0.50 % (0.001-0.429) H 02/09/17 14:17 Immature Gran # (Auto) 0.03 K/mm3 (0.000-0.0310) 02/09/17 14:17 Neutrophils % 79.5 % (42-75.0) H 02/09/17 14:17 Lymphocytes % 12.9 % (20-51) L 02/09/17 14:17 Monocytes % 6.1 % (0.0-9) 02/09/17 14:17 Eosinophils % 0.8 % (0.0-3.0) 02/09/17 14:17 Basophils % 0.2 % (0.0-1.0) 02/09/17 14:17 Nucleated RBC % 0.0 k/mm3 (0-1) 02/09/17 14:17 Neutrophils # 5.1 K/mm3 (1.3-6.0) 02/09/17 14:17 Lymphocytes # 0.8 k/mm3 (1.5-3.5) L 02/09/17 14:17 Monocytes # 0.4 k/mm3 (0.0-1.0) 02/09/17 14:17 Eosinophils # 0.1 k/mm3 (0.0-0.7) 02/09/17 14:17 Absolute Basophils 0.0 k/mm3 (0.0-0.1) 02/09/17 14:17 D-Dimer 7.10 mg/L (0.19-0.49) H 02/09/17 17:05 pCO2 30.5 mmHg (32.0-45.0) L 02/09/17 14:35 pO2 363.2 mmHg (83.0-108.0) H 02/09/17 14:35 HCO3 16.3 mmol/L (21.0-28.0) L 02/09/17 14:35 Total CO2 17.2 mmol/L (19.0-24.0) L 02/09/17 14:35 Base Excess -8.5 mmol/L (-2.0-3.0) L 02/09/17 14:35 ABG pH 7.35 (7.35-7.45) 02/09/17 14:35 ABG O2 Sat (Measured) 99.8 % (94.0-98.0) H 02/09/17 14:35 Sodium 135 mmol/L (132-142) 02/09/17 14:17 Plasma Sodium 135 mmol/L (130-142) 02/09/17 14:17 Potassium 5.8 mmol/L (3.4-4.6) H 02/09/17 14:17 Chloride 105 mmol/L (97-106) 02/09/17 14:17 Carbon Dioxide 18.9 mmol/L (24-32.6) L 02/09/17 14:17 Anion Gap 16.9 mmol/L (6.8-13.8) H 02/09/17 14:17 BUN 45 mg/dL (3-23) H 02/09/17 14:17 Creatinine 1.86 mg/dL (0.4-1.4) H 02/09/17 14:17 Est GFR (Non-Af Amer) 27 mL/min (60-130) L 02/09/17 14:17 BUN/Creatinine Ratio 24.2 (9.0-21.6) H 02/09/17 14:17 Random Glucose 104 mg/dL (70-110) 02/09/17 14:17 Lactic Acid, Venous 0.8 mmol/L (0.4-1.9) 02/09/17 17:05 Calcium 8.2 mg/dL (7.9-10.9) 02/09/17 14:17 Calcium Adj for Albumin 8.5 mg/dL (8.4-10.2) 02/09/17 14: Magnesium 2.6 mg/dL (1.2-2.8) 02/09/17 14: Total Bilirubin 0.4 mg/dL (0.0-1.1) 02/09/17 14:17 AST 17 U/L (0-48) 02/09/17 14: ALT 12 U/L (19-67) L 02/09/17 14:17 Alkaline Phosphatase 80 U/L (50-170) 02/09/17 14:17 Troponin I Less than 0.017 ng/ml (0.00-0.10) 02/09/17 14:17 Total Protein 6.6 gm/dL (6.2-8.2) 02/09/17 14:17 Albumin 3.2 gm/dl (3.4-5.0) L 02/09/17 14:17 Lipase 124 U/L (73-393) 02/09/17 14:17 Urine Color Yellow 02/09/17 16:29 Urine Appearance Clear 02/09/17 16:29 Urine pH 6.0 pH (5.0-7.0) 02/09/17 16:29 Ur Specific [place] 1.010 SP.GR. (1.005-1.010) 02/09/17 16:29 Urine Protein 15 mg/dL (NEGATIVE) H 02/09/17 16:29 Urine Glucose (UA) Negative mg/dL (NEGATIVE) 02/09/17 16:29 Urine Ketones Negative mg/dL (NEGATIVE) 02/09/17 16:29 Urine Blood Negative /ul (NEGATIVE) 02/09/17 16:29 Urine Nitrate Negative (NEGATIVE) 02/09/17 16:29 Urine Bilirubin Negative mg/dl (NEGATIVE) 02/09/17 16:29 Prot Sulfosalicylic Acd 1+ mg/dL (0) 02/09/17 16:29 Urine Urobilinogen Normal EU/dl (NORMAL) 02/09/17 16:29 Ur Leukocyte Esterase Negative /ul (NEGATIVE) 02/09/17 16:29 Urine RBC None seen /hpf (0-5) 02/09/17 16:29 Urine WBC 0-5 /hpf (0-5) 02/09/17 16:29 Ur Epithelial Cells Trace /hpf (0-5) 02/09/17 16:29 Ur Transition Epith Cell Few - 1+ /hpf (NONE) H 02/09/17 16:29 Ur Renal Epithelial Cell Few - 1+ /hpf (NONE) H 02/09/17 16:29 Amorphous Sediment Few - 1+ (NONE-FEW) 02/09/17 16:29 Urine Bacteria 2+ (NONE) H 02/09/17 16:29 Fine Granular Casts 0-5 /LPF (NONE) H 02/09/17 16:29 Urine Mucus Few - 1+ (NONE) H 02/09/17 16:29 Urine Culture Comments Culture to follow 02/09/17 16:29 CXR: left subclavian central venous catheter with tip terminating in the distal superior vena cava, no pneumothorax. Assessment/Plan - Narrative Narrative: Hypotensive On adm pt had syncopal episode prior to arrival in ER Prior to ER , BP 44/15 HR 40 2L Bolus given in ER Central line placed for dopamine infusion taper dose and keep SBP >100 Continue with IVF and supplemented oxygen monitor CBC, BMP EKG noted and continue with telemetry monitoring CXR: Left subclavian central venous catheter with tip terminating in the distal superior vena cava, no pneumothorax. Rose cath for correct I/O Avoid antihypertensive medications Renal failure secondary to hypotensive and decreased oral intake On adm cre/Bun 1.86/ 45 Continue with IVF and dopamine drip Plan same as #1 suspicious for PE On adm D-Dimer >[address] chest as pt have renal failure with cre/Bun 1.86/ 45 Lovenox 52mg x1 Code status: DNR VTE ppx: Lovenox GI ppx: protonix Time 50 minutes discussion with family and attending updated - Assessment/Plan (1) Renal failure Problem: Acute (2) Dementia Problem: Chronic (3) COPD (chronic obstructive pulmonary disease) Problem: Chronic (4) Dehydration Problem: Acute (5) Hypotension Problem: Acute Qualifiers: Hypotension type: idiopathic hypotension Qualified Code(s): I95.0 - Idiopathic hypotension (6) Syncope Problem: Acute Qualifiers: Syncope type: unspecified Qualified Code(s): R55 - Syncope and collapse
[2017-02-09] MEDS ORDERED: MORPHINE SULFATE 2 MG/ML DISP.SYRIN ONE (21:02)
[2017-02-09] MEDS: MORPHINE SULFATE 2 MG/ML DISP.SYRIN IV PRN (21:16)
[2017-02-09] MEDS: NORMAL SALINE 1,000 ML IV PRN (21:32)
[2017-02-10 05:09] LABS: Hematocrit 27.3 % (37.0-47.0); Hemoglobin 8.8 gm/dL (12.5-16.0); Mean Cell Volume 98.2 fl (78-100); Mean Corpuscular Hemoglobin 31.7 pg (27-31); Mean Corpuscular Hgb Conc 32.2 g/dl (32-36); Mean Platelet Volume 10.7 fl (6.0-9.5); Neutrophil # 14.7 K/mm3 (1.3-6.0); Neutrophil % 90.7 % (42-75.0); Platelet Count 146 K/mm3 (150-450); Red Blood Count 2.78 M/mm3 (4.2-5.4); Red Cell Distribution Width 14.1 % (11.5-14.0); White Blood Count 16.2 K/mm3 (4.0-10.5)
[2017-02-10 05:25] LABS: Albumin * 2.8 gm/dl (3.4-5.0); BUN/Creatinine Ratio 29.1 (9.0-21.6); Bilirubin, Total 0.4 mg/dL (0.0-1.1); Calcium * 7.4 mg/dL (7.9-10.9); Carbon Dioxide 16.7 mmol/L (24-32.6); Potassium 4.7 mmol/L (3.4-4.6); Total Protein 5.9 gm/dL (6.2-8.2)
[2017-02-10] MEDS: NORMAL SALINE 1,000 ML IV PRN ×4 (06:21→21:08)
[2017-02-10] MEDS ORDERED: FLU VACC QS2017-18(6MOS UP)/PF 60 MCG/0.5 ML SYRINGE IM ONE (09:00)
[2017-02-10] MEDS: NORMAL SALINE 1,000 ML IV ONE ×2 (09:13→09:54)
[2017-02-10] MEDS ORDERED: ENOXAPARIN SODIUM 60 MG/0.6 ML SYRG SC ONE (10:00)
[2017-02-10 12:30] LABS: INR 0.96 INR (0.90-1.10)
[2017-02-10 12:32] LABS: Mean Corpuscular Hemoglobin 31.6 pg (27-31); Mean Corpuscular Hgb Conc 32.2 g/dl (32-36); Neutrophil # 9.3 K/mm3 (1.3-6.0); Platelet Count 129 K/mm3 (150-450); Red Blood Count 2.44 M/mm3 (4.2-5.4); Red Cell Distribution Width 14.2 % (11.5-14.0); White Blood Count 10.4 K/mm3 (4.0-10.5)
[2017-02-10 12:33] LABS: Albumin * 2.6 gm/dl (3.4-5.0); Anion Gap 15.7 mmol/L (6.8-13.8); BUN/Creatinine Ratio 28.7 (9.0-21.6); Bilirubin, Total 0.3 mg/dL (0.0-1.1); Ca. Corrected For Albumin 7.6 mg/dL (8.4-10.2); Calcium * 6.8 mg/dL (7.9-10.9); Carbon Dioxide 14.9 mmol/L (24-32.6); Potassium 4.6 mmol/L (3.4-4.6); Total Protein 5.6 gm/dL (6.2-8.2)
[2017-02-10 12:40] LABS: Hematocrit 23.9 % (37.0-47.0); Hemoglobin 7.7 gm/dL (12.5-16.0)
[2017-02-10] MEDS: MORPHINE SULFATE 2 MG/ML DISP.SYRIN IV PRN (13:01)
--- NOTE | 2017-02-10 13:13 | PN ---
Subjective - Date and Time Seen Date: 02/10/17 Time: 13:09 Subjective Narrative: Patient is more alert and talkative. Answers some questions appropriately; denies any shortness of breath. Per nursing sats drop and dopamine dosage is reduced ??? Objective - Review of Systems Generalized/Overall Review: Denies: Chills, Fever Respiratory: Denies: Cough, Shortness of Breath Cardiac: Denies: Chest Pain, Edema - Vitals Vitals: Vital Signs Temp 35.9 C L 02/10/17 12:00 Pulse 61 02/10/17 12:00 Resp 11 L 02/10/17 12:00 BP 124/53 02/10/17 12:00 Pulse Ox 100 02/10/17 12:00 - Abnormal Lab Findings Abnormal Lab Findings: Laboratory Tests 02/10/17 02/10/17 05:00 12:17 WBC 16.2 H D 10.4 D Hgb 8.8 L 7.7 L* Hct 27.3 L 23.9 L* Plt Count 146 L 129 L 02/10/17 02/10/17 05:00 12:17 Plasma Sodium 138 140 Potassium 4.7 H 4.6 Chloride 109 H 114 H Carbon Dioxide 16.7 L 14.9 L BUN 46 H 35 H Creatinine 1.58 H 1.22 Est GFR (Non-Af Amer) 33 L D 45 L D Random Glucose 121 H 105 Calcium Adj for Albumin 8.0 L 7.6 L Total Bilirubin 0.4 0.3 AST 13 13 Alkaline Phosphatase 155 127 Albumin 2.8 L 2.6 L 02/09/17 17:05 D-Dimer 7.10 H - EKG/Xray Findings EKG: NSR, LBBB, nonspecific ST T wave chg - Exam Constitutional: Present: Elderly - alert and oriented x1 , following some commands. ENT Exam: Present: hearing grossly normal Neck: Present: supple, trachea midline Respiratory: Present: lungs clear, normal breath sounds. Absent: no accessory muscle use Cardiovascular/Chest: Present: regular rate, rhythm, systolic murmur. Absent: tachycardia Abdomen: Present: Normal bowel sounds, soft, nontender, nondistended Extremity: Present: normal range of motion, non-tender, other - fracture RT arm , in cast Skin Exam: Present: warm/dry, pallor Eye contact: Present: cooperative, good eye contact Thoughts: Present: other - unable to test at this time. Cauti Physician Documentation - Urinary Catheter Management Urethral (Rose) Date of Insertion: 02/09/17 Time of Insertion: 16:36 Assessment/Plan Plan Narrative: 1. Hypotension with bradycardia: Patient currently on IV fluids and a dopamine drip at 10 mics/kg/min to mantain systolic 100 or greater. Urine output has improved. Patient is scheduled for CT with contrast to rule out PE as d-dimer is greater than 7. 2. Elevated BUN/CR: Could represent dehydration and vasovagal episode. Patient responding well to IV fluids. Patient was on antihypertensives, pain medications and had poor oral intake. 3. Chronic medical problems: Chronic medical problems include dementia, falls, poor oral intake, osteoporosis etc.
[2017-02-10] MEDS: ENOXAPARIN SODIUM 30 MG/0.3 ML SYRG SC SCH (18:43)
[2017-02-11] MEDS: NORMAL SALINE 1,000 ML IV PRN ×3 (01:19→07:16)
[2017-02-11 05:12] LABS: Mean Cell Volume 96.3 fl (78-100); Mean Corpuscular Hgb Conc 32.2 g/dl (32-36); Mean Platelet Volume 11.7 fl (6.0-9.5); Neutrophil % 85.6 % (42-75.0); Platelet Count 92 K/mm3 (150-450); Red Blood Count 2.45 M/mm3 (4.2-5.4); Red Cell Distribution Width 16.1 % (11.5-14.0)
[2017-02-11 05:20] LABS: Hematocrit 23.6 % (37.0-47.0); Hemoglobin 7.6 gm/dL (12.5-16.0)
[2017-02-11 05:32] LABS: Albumin * 2.3 gm/dl (3.4-5.0); Anion Gap 16.4 mmol/L (6.8-13.8); BUN/Creatinine Ratio 26.3 (9.0-21.6); Bilirubin, Total 0.5 mg/dL (0.0-1.1); Ca. Corrected For Albumin 8.3 mg/dL (8.4-10.2); Calcium * 7.3 mg/dL (7.9-10.9); Carbon Dioxide 15.9 mmol/L (24-32.6); Potassium 4.3 mmol/L (3.4-4.6); Total Protein 5.1 gm/dL (6.2-8.2); Troponin I 0.029 ng/ml (0.00-0.10)
[2017-02-11] MEDS ORDERED: diphenhydrAMINE HCL 50 MG/ML VIAL IV PRN (07:07)
[2017-02-11] MEDS ORDERED: ACETAMINOPHEN 325 MG TABLET PO PRN (07:07)
--- NOTE | 2017-02-11 07:29 | PN ---
Subjective - Date and Time Seen Date: 02/11/17 Time: 07:11 Subjective Narrative: Patient seen today Alert x2, pt stated she was brought to the hospital by daughter Jenise because she was passing out. No acute distress and stated she would like to get well and go back home. Daughter at the bedside, anticipating pt transfer to med/surg. pt to be transfused 1 UPRBC and monitor. Plan of care discussed with pt and daughter they verbalized understanding and agrees. Objective - Review of Systems Generalized/Overall Review: Reports: No Symptoms Reported EENTM: Reports: No Symptoms Reported Respiratory: Reports: No Symptoms Reported Cardiac: Reports: No Symptoms Reported Abdominal: Reports: No Symptoms Reported Genitourinary Symptoms: Reports: No Symptoms Reported Musculoskeletal Complaints: Reports: No Symptoms Reported Neurological: Reports: No Symptoms Reported Skin: Reports: No Symptoms Reported - Vitals Vitals: Last Vital Signs Temp 36.6 C 02/11/17 01:00 Pulse 77 02/11/17 05:00 Resp 16 02/11/17 05:00 BP 135/61 02/11/17 05:00 Pulse Ox 96 02/11/17 05:00 - Abnormal Lab Findings Abnormal Lab Findings: Abnormal Lab Results 02/10/17 02/10/17 02/10/17 Range/Units 12:17 12:17 14:05 RBC 2.44 L (4.2-5.4) M/mm3 Hgb 7.7 L* (12.5-16.0) gm/dL Hct 23.9 L* (37.0-47.0) % MCH 31.6 H (27-31) pg RDW 14.2 H (11.5-14.0) % Plt Count 129 L (150-450) K/mm3 MPV 11.0 H (6.0-9.5) fl Immature Gran % (Auto) 0.80 H (0.001-0.429) % Immature Gran # (Auto) 0.08 H (0.000-0.0310) K/mm3 Neutrophils % 89.0 H (42-75.0) % Lymphocytes % 5.4 L (20-51) % Neutrophils # 9.3 H (1.3-6.0) K/mm3 Lymphocytes # 0.6 L (1.5-3.5) k/mm3 Chloride 114 H (97-106) mmol/L Carbon Dioxide 14.9 L (24-32.6) mmol/L Anion Gap 15.7 H (6.8-13.8) mmol/L BUN 35 H (3-23) mg/dL Est GFR (Non-Af Amer) 45 L D (60-130) mL/min BUN/Creatinine Ratio 28.7 H (9.0-21.6) Calcium 6.8 L (7.9-10.9) mg/dL Calcium Adj for Albumin 7.6 L (8.4-10.2) mg/dL ALT 10 L (19-67) U/L Total Protein 5.6 L (6.2-8.2) gm/dL Albumin 2.6 L (3.4-5.0) gm/dl Crossmatch See Detail 02/11/17 02/11/17 Range/Units 05:00 05:00 RBC 2.45 L (4.2-5.4) M/mm3 Hgb 7.6 L* (12.5-16.0) gm/dL Hct 23.6 L* (37.0-47.0) % MCH (27-31) pg RDW 16.1 H (11.5-14.0) % Plt Count 92 L (150-450) K/mm3 MPV 11.7 H (6.0-9.5) fl Immature Gran % (Auto) 0.60 H (0.001-0.429) % Immature Gran # (Auto) 0.04 H (0.000-0.0310) K/mm3 Neutrophils % 85.6 H (42-75.0) % Lymphocytes % 7.8 L (20-51) % Neutrophils # (1.3-6.0) K/mm3 Lymphocytes # 0.6 L (1.5-3.5) k/mm3 Chloride 114 H (97-106) mmol/L Carbon Dioxide 15.9 L (24-32.6) mmol/L Anion Gap 16.4 H (6.8-13.8) mmol/L BUN 25 H (3-23) mg/dL Est GFR (Non-Af Amer) (60-130) mL/min BUN/Creatinine Ratio 26.3 H (9.0-21.6) Calcium 7.3 L (7.9-10.9) mg/dL Calcium Adj for Albumin 8.3 L (8.4-10.2) mg/dL ALT 10 L (19-67) U/L Total Protein 5.1 L (6.2-8.2) gm/dL Albumin 2.3 L (3.4-5.0) gm/dl Crossmatch - Exam Constitutional: Present: Alert, Cooperative ENT Exam: Present: hearing grossly normal Neck: Present: full range of motion Breasts: Present: Exam deferred Respiratory: Present: chest non-tender, lungs clear, normal breath sounds, no respiratory distress Cardiovascular/Chest: Present: normal peripheral pulses, regular rate, rhythm, no chest tenderness, no edema Abdomen: Present: Normal bowel sounds, soft, nontender, nondistended, no rebound tenderness /Rectal: Present: Exam deferred Extremity: Present: normal inspection, normal capillary refill, other - Right arm cast, right hand swelling improving Skin Exam: Present: other - right hand wound, left hand bruising, left subclavian central line intact Neurologic: Present: no motor/sensory deficits, alert, normal mood/affect Eye contact: Present: cooperative Thoughts: Present: no apparent hallucination Cauti Physician Documentation - Urinary Catheter Management Urethral (Rose) Date of Insertion: 02/09/17 Time of Insertion: 16:36 Assessment/Plan Plan Narrative: Anemia- possible due to hemodilution 02/10/17 S/P PRBC Decreased IVF rate and give 1UPRBC Have additional unit on hold if Hgb <8 give additional unit Initiate oral iron and Colace Hypotensive- resolving On adm pt had syncopal episode prior to arrival in ER Prior to ER , BP 44/15 HR 40----> today BP 135/61-- HR 76 NSR Dopamine drip D/C and ---> continue with normal saline 125ml/hr Central line placement remain intact Pt was weaned off oxygen and stable on room air. monitor CBC, BMP in am EKG noted and continue with telemetry monitoring CXR: Left subclavian central venous catheter with tip terminating in the distal superior vena cava, no pneumothorax. Rose cath for correct I/O---> pt have 1300ml overnight Avoid antihypertensive medications Renal failure secondary to hypotension and decreased oral intake- improving On adm cre/Bun 1.86/ 45----->25/0.95 Continue with IVF and dopamine drip was D/C Plan same as #1 suspicious for PE On adm D-Dimer >7 In ER Lovenox 52mg/kg x1 On adm was Unable to obtain CT chest due to renal failure with cre/Bun 1.86/ 45 kidney function improved 02/10/17 CTA negative for PE Code status: DNR VTE ppx: Lovenox GI ppx: protonix PT for deconditioning, family anticipating having pt discharge back home Time 35 minutes discussion with family and attending updated - Problems/Diagnosis (1) Renal failure Problem: Acute Qualifiers: Renal failure chronicity: acute (2) Dementia Problem: Chronic (3) COPD (chronic obstructive pulmonary disease) Problem: Chronic (4) Dehydration Problem: Resolved (5) Hypotension Problem: Resolved Qualifiers: Hypotension type: idiopathic hypotension Qualified Code(s): I95.0 - Idiopathic hypotension (6) Syncope Problem: Acute Qualifiers: Syncope type: unspecified Qualified Code(s): R55 - Syncope and collapse
[2017-02-11] MEDS: FERROUS SULFATE 325 MG TABLET PO SCH ×2 (08:07→16:23)
[2017-02-11] MEDS: DOCUSATE SODIUM 100 MG CAPSULE PO SCH (08:07)
[2017-02-11 11:29] LABS: Hematocrit 27.3 % (37.0-47.0); Hemoglobin 9.3 gm/dL (12.5-16.0)
[2017-02-11] MEDS: ENOXAPARIN SODIUM 30 MG/0.3 ML SYRG SC SCH (17:14)
[2017-02-11] MEDS: MORPHINE SULFATE 2 MG/ML DISP.SYRIN IV PRN (19:14)
[2017-02-12 05:20] LABS: Mean Cell Volume 93.8 fl (78-100); Mean Corpuscular Hemoglobin 31.3 pg (27-31); Mean Corpuscular Hgb Conc 33.3 g/dl (32-36); Mean Platelet Volume 10.6 fl (6.0-9.5); Neutrophil # 5.4 K/mm3 (1.3-6.0); Neutrophil % 78.6 % (42-75.0); Platelet Count 93 K/mm3 (150-450); Red Blood Count 2.88 M/mm3 (4.2-5.4); Red Cell Distribution Width 15.7 % (11.5-14.0); White Blood Count 6.9 K/mm3 (4.0-10.5)
[2017-02-12 05:35] LABS: Albumin * 2.2 gm/dl (3.4-5.0); Anion Gap 12.8 mmol/L (6.8-13.8); BUN/Creatinine Ratio 26.1 (9.0-21.6); Bilirubin, Total 0.5 mg/dL (0.0-1.1); Ca. Corrected For Albumin 8.7 mg/dL (8.4-10.2); Calcium * 7.6 mg/dL (7.9-10.9); Potassium 3.8 mmol/L (3.4-4.6)
--- NOTE | 2017-02-12 06:56 | PN ---
Subjective - Date and Time Seen Date: 02/12/17 Time: 06:46 Subjective Narrative: Patient seen today alert to self and stated she was feeling much better.She hope her daughter not working today and can take her home. Objective - Review of Systems Generalized/Overall Review: Reports: No Symptoms Reported EENTM: Reports: No Symptoms Reported Respiratory: Reports: No Symptoms Reported Cardiac: Reports: No Symptoms Reported Abdominal: Reports: No Symptoms Reported Genitourinary Symptoms: Reports: No Symptoms Reported Musculoskeletal Complaints: Reports: No Symptoms Reported Neurological: Reports: No Symptoms Reported Skin: Reports: No Symptoms Reported Endocrine: Reports: No Symptoms Reported - Vitals Vitals: Last Vital Signs Temp 37.1 C 02/12/17 06:26 Pulse 62 02/12/17 06:26 Resp 16 02/12/17 06:26 BP 162/72 02/12/17 06:26 Pulse Ox 91 02/12/17 06:26 - Abnormal Lab Findings Abnormal Lab Findings: Abnormal Lab Results 02/10/17 02/11/17 02/12/17 Range/Units 14:05 11:10 05:05 RBC 2.88 L (4.2-5.4) M/mm3 Hgb 9.3 L 9.0 L (12.5-16.0) gm/dL Hct 27.3 L 27.0 L (37.0-47.0) % MCH 31.3 H (27-31) pg RDW 15.7 H (11.5-14.0) % Plt Count 93 L (150-450) K/mm3 MPV 10.6 H (6.0-9.5) fl Neutrophils % 78.6 H (42-75.0) % Lymphocytes % 12.1 L (20-51) % Lymphocytes # 0.8 L (1.5-3.5) k/mm3 Chloride (97-106) mmol/L Carbon Dioxide (24-32.6) mmol/L BUN/Creatinine Ratio (9.0-21.6) Calcium (7.9-10.9) mg/dL ALT (19-67) U/L Total Protein (6.2-8.2) gm/dL Albumin (3.4-5.0) gm/dl Crossmatch See Detail 02/12/17 Range/Units 05:05 RBC (4.2-5.4) M/mm3 Hgb (12.5-16.0) gm/dL Hct (37.0-47.0) % MCH (27-31) pg RDW (11.5-14.0) % Plt Count (150-450) K/mm3 MPV (6.0-9.5) fl Neutrophils % (42-75.0) % Lymphocytes % (20-51) % Lymphocytes # (1.5-3.5) k/mm3 Chloride 113 H (97-106) mmol/L Carbon Dioxide 20.0 L (24-32.6) mmol/L BUN/Creatinine Ratio 26.1 H (9.0-21.6) Calcium 7.6 L (7.9-10.9) mg/dL ALT 11 L (19-67) U/L Total Protein 5.0 L (6.2-8.2) gm/dL Albumin 2.2 L (3.4-5.0) gm/dl Crossmatch - Exam Constitutional: Present: Alert, Cooperative, No distress, Elderly ENT Exam: Present: hearing grossly normal Neck: Present: full range of motion Respiratory: Present: chest non-tender, normal breath sounds, no respiratory distress, no accessory muscle use Cardiovascular/Chest: Present: normal peripheral pulses, regular rate, rhythm, no chest tenderness, no edema Abdomen: Present: Normal bowel sounds, soft, nontender, nondistended /Rectal: Present: Exam deferred Extremity: Present: non-tender, normal inspection, no pedal edema, no calf tenderness, other - right arm cast Skin Exam: Present: warm/dry, no cyanosis, other - bruising and right hand wound Neurologic: Present: alert, normal mood/affect Appearance: Present: appropriate appearance Eye contact: Present: cooperative Thoughts: Present: normal thought pattern Cauti Physician Documentation - Urinary Catheter Management Urethral (Rose) Date of Insertion: 02/09/17 Time of Insertion: 16:36 Date of Removal: 02/11/17 Time of Removal: 10:35 Assessment/Plan Plan Narrative: Hypertension BP 162/72 HR 62 May resume home dose of medications Anemia- possible due to hemodilution- resolving 02/11/17 S/P 2PRBC Continue with oral iron and Colace 02/12/17 Hgb 9.0 Renal failure secondary to hypotension and decreased oral intake- Resolved On adm cre/Bun 1.86/ 45----->25/0.95---->23/0.88 Continue with IVF Plan same as #1 suspicious for PE- Negative for PE On adm D-Dimer >7 In ER Lovenox 52mg/kg x1 On adm was Unable to obtain CT chest due to renal failure with cre/Bun 1.86/ 45 kidney function improved 02/10/17 CTA negative for PE Hypotensive- resolved On adm pt had syncopal episode prior to arrival in ER Prior to ER , BP 44/15 HR 40----> today BP 135/61-- HR 76 NSR Dopamine drip D/C and ---> continue with normal saline 125ml/hr Central line placement remain intact Pt was weaned off oxygen and stable on room air. monitor CBC, BMP in am EKG noted and continue with telemetry monitoring CXR: Left subclavian central venous catheter with tip terminating in the distal superior vena cava, no pneumothorax. Rose cath for correct I/O---> pt have 1300ml overnight Avoid antihypertensive medications Code status: DNR VTE ppx: Lovenox GI ppx: protonix PT for deconditioning, Time 15 minutes discussion with attending updated - Problems/Diagnosis (1) Renal failure Problem: Acute Qualifiers: Renal failure chronicity: acute (2) Dementia Problem: Chronic (3) COPD (chronic obstructive pulmonary disease) Problem: Chronic (4) Dehydration Problem: Resolved (5) Hypotension Problem: Resolved Qualifiers: Hypotension type: idiopathic hypotension Qualified Code(s): I95.0 - Idiopathic hypotension (6) Syncope Problem: Acute Qualifiers: Syncope type: unspecified Qualified Code(s): R55 - Syncope and collapse
[2017-02-12] MEDS: DOCUSATE SODIUM 100 MG CAPSULE PO SCH (08:43)
[2017-02-12] MEDS: FERROUS SULFATE 325 MG TABLET PO SCH ×2 (08:43→17:28)
[2017-02-12] MEDS: LISINOPRIL 5 MG TABLET PO SCH ×2 (11:51→20:52)
[2017-02-12] MEDS: CHOLECALCIFEROL 1,000 UNIT CAPSULE PO SCH (11:52)
[2017-02-13] MEDS: FERROUS SULFATE 325 MG TABLET PO SCH (09:18)
[2017-02-13] MEDS: LISINOPRIL 5 MG TABLET PO SCH ×2 (09:18→20:49)
[2017-02-13] MEDS: CHOLECALCIFEROL 1,000 UNIT CAPSULE PO SCH (09:18)
[2017-02-13] MEDS: DOCUSATE SODIUM 100 MG CAPSULE PO SCH (09:18)
[2017-02-13] MEDS ORDERED: ACETAMINOPHEN 325 MG TABLET PO PRN (11:19)
[2017-02-13] MEDS: ACETAMINOPHEN 325 MG TABLET PO SCH ×2 (11:59→20:49)
[2017-02-13 12:31] LABS: Iron 46 mcg/dL (35-120); Transferrin Sat. (% Sat.) 28 % (15-55)
--- NOTE | 2017-02-13 16:39 | PN ---
Subjective - Date and Time Seen Date: 02/13/17 Time: 16:30 Subjective Narrative: Patient up in chair. Alert and not oriented to place. Poor appetite has occasional pain relieved by Tylenol. Requiring 2 assist to ambulate. POA [ Daughter wants her in a fci/bounce back program]. Objective - Review of Systems Generalized/Overall Review: Denies: Weakness, Chills, Fever - Vitals Vitals: Last Vital Signs Temp 36.8 C 02/13/17 14:35 Pulse 65 02/13/17 14:35 Resp 20 02/13/17 14:35 BP 153/61 02/13/17 14:35 Pulse Ox 98 02/13/17 14:35 - Abnormal Lab Findings Abnormal Lab Findings: Abnormal Lab Results 02/13/17 Range/Units 05:05 TIBC 162 L (260-445) mcg/dL - Exam Constitutional: Present: Cooperative - Alerts/not oriented, Elderly Neck: Present: normal inspection, trachea midline Cardiovascular/Chest: Present: regular rate, rhythm. Absent: tachycardia Abdomen: Present: soft, nontender, nondistended Extremity: Present: other - RT hand fracture Skin Exam: Present: warm/dry, pallor Eye contact: Present: cooperative, good eye contact Cauti Physician Documentation - Urinary Catheter Management Urethral (Rose) Date of Insertion: 02/09/17 Time of Insertion: 16:36 Date of Removal: 02/11/17 Time of Removal: 10:35 Assessment/Plan Plan Narrative: 1. Hypotension and bradycardia: Resolved with IV fluids and dopamine drip. No evidence of PE on CT scan with contrast on 02/11/17 2. Increased BUN/CR : Most likely secondary to prerenal azotemia - due to decreased PO intake secondary to pain meds/ confusion. B UN/CR improved from 45/1.86[02/09/17] to 20/0.88[ 02/12/17]. 3. Anemia: Lowest H&H at 7.7/23.9. 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 4. HTN. On lisinopril 5 mg PO BID. 5. Other chronic problems: Dementia, falls, poor oral intake, smoking, difficulty in ambulation reviewed and stable.
[2017-02-14] MEDS: ACETAMINOPHEN 325 MG TABLET PO SCH (03:05)
[2017-02-14] MEDS: CHOLECALCIFEROL 1,000 UNIT CAPSULE PO SCH (08:04)
[2017-02-14] MEDS: DOCUSATE SODIUM 100 MG CAPSULE PO SCH (08:05)
[2017-02-14] MEDS: LISINOPRIL 5 MG TABLET PO SCH (08:05)
[2017-02-14] MEDS ORDERED: LISINOPRIL 5 MG TABLET PO ONE (09:00)
[2017-02-14] MEDS: traMADol HCL 50 MG TABLET PO SCH ×3 (10:13→16:14)
[2017-02-14] MEDS: LISINOPRIL 10 MG TABLET PO SCH ×2 (10:13→20:46)
--- NOTE | 2017-02-14 18:04 | PN ---
Subjective - Date and Time Seen Date: 02/14/17 Time: 18:00 Subjective Narrative: Patient continues to be confused, not ambulating much, had PT today only able to pivot and transfer. Does not recall why she she is in the hospital. Objective - Review of Systems Generalized/Overall Review: Reports: Weakness Respiratory: Denies: Cough, Shortness of Breath Cardiac: Denies: Chest Pain, Edema - Vitals Vitals: Vital Signs Temp 36.5 C 02/14/17 14:00 Pulse 70 02/14/17 14:00 Resp 20 02/14/17 14:00 BP 139/69 02/14/17 14:00 Pulse Ox 98 02/14/17 14:00 - Abnormal Lab Findings Abnormal Lab Findings: - Exam Constitutional: Present: Elderly - looks her stated age, alert and confused. ENT Exam: Present: hearing grossly normal - edentulous Neck: Present: normal inspection, trachea midline Respiratory: Present: normal breath sounds. Absent: no accessory muscle use Cardiovascular/Chest: Present: regular rate, rhythm, bradycardia Abdomen: Present: Normal bowel sounds, soft, nontender Extremity: Present: other - RT arm in cast. Skin Exam: Present: warm/dry, pallor Eye contact: Present: cooperative, good eye contact Cauti Physician Documentation - Urinary Catheter Management Urethral (Rose) Date of Insertion: 02/09/17 Time of Insertion: 16:36 Date of Removal: 02/11/17 Time of Removal: 10:35 Assessment/Plan Plan Narrative: 1. Hypotension and bradycardia: Resolved with IV fluids and dopamine drip. No evidence of PE on CT scan with contrast on 02/11/17. Poor IV access. Central line DC'd today. 2. Increased BUN/CR : Most likely secondary to prerenal azotemia - due to decreased PO intake secondary to pain meds/ confusion. B UN/CR improved from 45/1.86[02/09/17] to 20/0.88 [02/12/17]. recheck labs on 02/15/17. 3. Anemia: Lowest H&H at 7.7/23.9. 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 4. HTN. On lisinopril 5 mg PO BID. 5. Other chronic problems: Dementia, falls, poor oral intake, smoking, difficulty in ambulation reviewed and stable. Looking for [facility] placement/temporary[bounce back program]/ permanent.
[2017-02-14] MEDS ORDERED: traMADol HCL 50 MG TABLET PO SCH (21:00)
[2017-02-15 06:00] LABS: Hematocrit 31.6 % (37.0-47.0); Hemoglobin 10.6 gm/dL (12.5-16.0); Mean Cell Volume 93.2 fl (78-100); Mean Corpuscular Hemoglobin 31.3 pg (27-31); Mean Corpuscular Hgb Conc 33.5 g/dl (32-36); Mean Platelet Volume 9.9 fl (6.0-9.5); Neutrophil # 3.2 K/mm3 (1.3-6.0); Neutrophil % 61.2 % (42-75.0); Platelet Count 108 K/mm3 (150-450); Red Blood Count 3.39 M/mm3 (4.2-5.4); Red Cell Distribution Width 14.6 % (11.5-14.0); White Blood Count 5.3 K/mm3 (4.0-10.5)
[2017-02-15 06:11] LABS: Albumin * 2.2 gm/dl (3.4-5.0); Anion Gap 10.9 mmol/L (6.8-13.8); BUN/Creatinine Ratio 23.5 (9.0-21.6); Bilirubin, Total 0.3 mg/dL (0.0-1.1); Ca. Corrected For Albumin 8.9 mg/dL (8.4-10.2); Calcium * 7.8 mg/dL (7.9-10.9); Carbon Dioxide 24.2 mmol/L (24-32.6); Potassium 4.1 mmol/L (3.4-4.6); Total Protein 5.3 gm/dL (6.2-8.2)
[2017-02-15] MEDS: LISINOPRIL 10 MG TABLET PO SCH (09:25)
[2017-02-15] MEDS: traMADol HCL 50 MG TABLET PO SCH ×2 (09:25→12:39)
[2017-02-15] MEDS: DOCUSATE SODIUM 100 MG CAPSULE PO SCH (09:27)
[2017-02-15] MEDS: CHOLECALCIFEROL 1,000 UNIT CAPSULE PO SCH (09:27)
--- NOTE | 2017-02-15 10:35 | DS ---
(1) Syncope Problem: Acute Qualifiers: Syncope type: unspecified Qualified Code(s): R55 - Syncope and collapse (2) Hypertension Problem: Chronic (3) Dementia Problem: Chronic Qualifiers: Dementia type: unspecified type (4) Hypothyroidism Problem: Chronic Qualifiers: Hypothyroidism type: unspecified Qualified Code(s): E03.9 - Hypothyroidism , unspecified (5) Olecranon fracture Diagnosis(s): RT olecranon on 12/03/16 with hardware removal and irrigation of wound on . Seen for scab on dorsum of RT hand due to irritation of cast. Problem: Chronic Qualifiers: Fracture type: closed Laterality: right Description of Stay: DATE OF ADMISSION: 02/09/2017. DATE OF DISCHARGE: 02/15/2017. DIAGNOSTICS: CTA: 02/10/2017. DISCHARGE SUMMARY: Luz Moreno is a 86-year-old WF with a history of HTN, TIA, dementia, nicotine abuse who apparently became unresponsive at her appointment at the wound clinic. Vitals at the scene : HR 40/m, BP 44/16. A CODE BLUE was called and CPR was given with increased responsiveness. Patient was taken to the ER for furthur evaluation. She was given IV fluids and required dopamine drip to maintain a systolic greater than 100 mm Hg. Significant labs: BUN/CR 47/1.86, d- dimer 7.10, troponin less than 0.017, H/H 8.9/29.0, WBC 6.4. CXR negative for infiltrate, EKG NSR 75/m, LBBB w/o acute changes. Patient was treated for possible PE with Lovenox at 1 mg/kg/ Q12h. BUN/CR did improve to 35/1.22 on 04/[address] A chest was obtained to rule out PE. CTA chest: No evidence of PE. Atherosclerotic calcifications present. Pleural thickening scarring in the apices. Dependent atelectasis. Patient's H&H did drop down to 7.7/23.9 at which time she was transfused with 1 unit of packed RBC. Dopamine was tapered off after the blood transfusion. Patient became more hemodynamically stable. Syncopal episode was presumed to be multifactorial : combination of poor oral intake, confusion caused by pain meds, low BP etc, hypovolemia. Patient continued to remain confused during her hospital stay. Workup of her anemia revealed normal B12 levels and anemia of chronic/ inflammatory disease. FT4 and TSH should be obtained in 8 weeks [04/18/17] and levothyroxine adjusted accordingly. Patient is being discharged in a stable condition to a detention to skilled therapy for OT and PT on 02/15/17. [A total of 50 minutes was spent in plan of care, discharge planning, reconciliation of medications, preparation and dictating discharge summary]. Procedures Performed: see notes below - central line - Dr. Osullivan [ surgeon ]. Results and Findings: Laboratory Tests 02/09/17 02/10/17 02/15/17 14:17 12:17 05:45 WBC 6.4 10.4 D 5.3 Hgb 8.9 L 7.7 L* 10.6 L Hct 29.0 L 23.9 L* 31.6 L MCV 103.2 H Plt Count 128 L 129 L 108 L 02/09/17 17:05 D-Dimer 7.10 H 02/09/17 02/10/17 02/15/17 14:17 12:17 05:45 Plasma Sodium 135 140 139 Potassium 5.8 H 4.6 4.1 Chloride 105 114 H 108 H Carbon Dioxide 18.9 L 14.9 L 24.2 BUN 45 H 35 H 19 Creatinine 1.86 H 1.22 0.81 Est GFR (Non-Af Amer) 27 L 45 L D 72 02/09/17 02/09/17 02/10/17 14:17 17:05 05:00 Lactic Acid, Venous 0.8 Troponin I Less than 0.017 Less than 0.017 02/13/17 05:05 Iron 46 TIBC 162 L Transferrin % Sat 28 Vitamin B12 652 02/15/17 05:45 TSH 80.528 H Discharge Disposition: [facility] Disposition: [facility] Condition: Undetermined Discharge Activity: Activity as tolerated Discharge Diet: Mech soft, High Fiber Discharge Level of Care:: SNF - Fdc Fdc Therapy: Physicial Therapy, Occupation Therapy Referrals: Aleks Delgadillo DO [Primary Care Provider] - Additional Patient Instructions (free text): F/U with ortho 02/18/17 at 10am. Fax discharge information to Dr. Delgadillo at [facility]. Dr Delgadillo to follow at detention. Fall precautions. [place] ensure twice a day between meals. Aspiration precautions. Prescriptions (Any new or edited meds): Cholecalciferol [Vitamin D] 2,000 unit PO DAILY #100 capsule Levothyroxine Sodium [Synthroid] 88 mcg PO DAILY@0700 #30 tab Lisinopril [Zestril] 20 mg PO BID #60 tablet Vit #108/Iron/FA [ One Tablet] 1 each PO DAILY #100 tablet traMADol HCL [Ultram] 25 mg PO TIDWM #90 tablet traMADol HCL [Ultram] 25 mg PO HS #30 tablet Complete Home Medications List: Complete Home Medication List: Aspirin [Aspirin Enteric Coated] 81 mg PO DAILY 01/20/17 Folic Acid 1 mg PO DAILY 01/20/17 Cholecalciferol [Vitamin D] 2,000 unit PO DAILY #100 capsule 02/15/17 Docusate Sodium [Colace] 100 mg PO DAILY capsule 02/15/17 Levothyroxine Sodium [Synthroid] 88 mcg PO DAILY@0700 #30 tab 02/15/17 Lisinopril [Zestril] 20 mg PO BID #60 tablet 02/15/17 Vit #108/Iron/FA [ One Tablet] 1 each PO DAILY #100 tablet traMADol HCL [Ultram] 25 mg PO HS #30 tablet 02/15/17 traMADol HCL [Ultram] 25 mg PO TIDWM #90 tablet 02/15/17
[2017-02-15 10:43] VITALS: BP 141/67
== END 2017-02-15 14:25 | DRG 684 ==
LOC: ER 13:47 → SCU 18:21 → MS 02-11 11:35
PROVIDERS: ADMIT Internal Medicine; ATTEND Internal Medicine
PROC: 03H433Z Insertion of Infusion Device into Left Subclavian Artery, Percutaneous Approach (ICD-10-PCS; principal; 2017-02-09)
PROC: 4A033R1 Measurement of Arterial Saturation, Peripheral, Percutaneous Approach (ICD-10-PCS; 2017-02-09)
DX: N17.9 Acute kidney failure, unspecified (principal); R55 Syncope and collapse; I95.0 Idiopathic hypotension; E86.0 Dehydration; J44.9 Chronic obstructive pulmonary disease, unspecified; I10 Essential (primary) hypertension; F03.90 Unspecified dementia, unspecified severity, without behavioral disturbance, psychotic disturbance, mood disturbance, and anxiety; F17.210 Nicotine dependence, cigarettes, uncomplicated; I25.2 Old myocardial infarction; Z86.73 Personal history of transient ischemic attack (TIA), and cerebral infarction without residual deficits; Z79.82 Long term (current) use of aspirin; Z23 Encounter for immunization
CPT/HCPCS: 36000; 36415; 36556; 51702; 71010; 71275; 80053; 81001; 82607; 82803; 83540; 83550; 83605; 83690; 83735; 84443; 84484; 85014; 85018; 85025; 85379; 85610; 86850; 86900; 87086; 90686; 93005; 96372; 96374; 97110; 97162; 97530; 99291; 99292; G0008; J2405; P9016